=== PATIENT | female | born 1980 | race Caucasian/White ===

== ENCOUNTER 2024-07-17 06:30 | Emergency (ER) | payer BC, SELFPAY ==
[2024-07-17] VITALS (9 sets, daily range): BP systolic 144–188; BP diastolic 93–109; BMI 25.5
--- NOTE | 2024-07-17 06:46 | ED.GENMED ---
History of Present Illness
General
Chief Complaint: Musculo-Skeletal Complaint
Time Seen by Provider: 07/17/24 06:37
History of Present Illness
History of Present Illness:
44-year-old female presents to the emergency department for evaluation of bilateral lower neck discomfort, she states it began mildly in the morning yesterday but at approximately 8pm last night and became quite severe and she felt as though she was
unable to move. Denies any associated fever, chills, sweats, dysphagia, voice changes, chest pain, or shortness of breath. She took ibuprofen last night without relief. Called 911 due to severe pain this morning and was given 50 mcg of fentanyl
with rapid improvement in symptoms. She was also concerned that during the severe bout of pain this morning both of her arms felt numb and painful. She denies any current extremity symptoms at this time. No recent head or neck trauma.
Past History
Past History
ED Past Medical History: IDDM
ED Past Surgical History: None
Social History
Tobacco: Non-smoker
Alcohol: Occasional
Drug: None
Personal:
Living: with family
Employment: Not employed
Review of Systems
Review of Systems
Allergies reviewed?: Yes
All Other Systems: ROS reviewed and negative except as documented in HPI and ROS
Phy Exam
Physical Exam
Physical Exam:
GEN: Well appearing, NAD, WDWN
HEENT: Oral mucosa moist, no scleral icterus
Cardiac: Regular rate and rhythm, no murmurs
Lung: No respiratory distress, no tachypnea, lungs clear to auscultation bilateral
MSK: No gross deformity or injuries. No midline cervical spine tenderness, normal cervical spine range of motion in all blanco with no provocation of pain. Normal upper extremity range of motion with 5 out of 5 strength in all blanco
Skin: Good color, no pallor or jaundice, no rashes
Neuro: AO x3, moves all extremities freely
Psych: Calm, cooperative
Course
Orders/Labs/Results
Orders:
Orders
07/17/24 06:43
Electrocardiogram (*1) Urgent
Reason for Study: Chest Pain
Other Reason for Exam: upper back pain
07/17/24 06:44
EKG- Treatment ONCE
Test Result ONCE
07/17/24 06:45
CR Chest - 2 Views Urgent
Comment:
Reason For Exam: upper back pain
07/17/24 06:52
CMP [Comprehensive Metabolic Panel] Urgent
Complete Blood Count/With Diff Urgent
HCG, Serum Qualitative Screen Urgent
Troponin I Urgent
07/17/24 07:32
Ketorolac [Toradol] 15 mg IV NOW STA
07/17/24 07:43
HYDROmorphone [Dilaudid] 0.5 mg IV NOW STA
07/17/24 09:17
CT Cervical Spine W/o Iv Contr Urgent
Comment:
Reason For Exam: severe neck pain/BUE radiculopathy
07/17/24 10:16
Dexamethasone Sod Phosphate [Decadron] 10 mg IV NOW STA
07/17/24 10:39
Oxycodone [Roxicodone] 5 mg PO NOW STA
Abnormal Lab Results
07/17/24
06:52
RBC 3.94 L 10^6/uL
(4.20-5.40)
Hgb 11.8 L g/dL
(12.0-16.0)
Hct 35.7 L %
(37.0-47.0)
MPV 10.7 H fL
(7.4-10.4)
Chloride 108 H mmol/L
(98-107)
Glucose 168 H mg/dl
(70-99)
07/17/24 06:52
07/17/24 06:52
Vital Signs
Initial and Last Documented VS:
Initial Vital Signs
Temp Pulse Resp BP Pulse Ox
98.3 F 65 16 153/101 100
07/17/24 06:35 07/17/24 06:35 07/17/24 06:35 07/17/24 06:35 07/17/24 06:35
Last Documented Vital Signs
Temp Pulse Resp BP Pulse Ox
98.3 F 65 16 144/93 99
07/17/24 06:35 07/17/24 06:35 07/17/24 06:35 07/17/24 10:00 07/17/24 10:30
MDM/Problems Addressed
MDM/Problems Addressed:
Patient had an episode of severe unrelenting pain that required IV opioids. During this time she was writhing in discomfort and complaining of bilateral arm pain. Ultimately her workup reveals significant degenerative disease in the cervical spine
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 I have a low clinical suspicion for aortic pathology given that she is a non-smoker and relatively young with no
anterior chest pain as well as symmetric blood pressures. Her pain remained well-controlled after IV opioids in the ED. Will prescribe a course of corticosteroids due to the severe foraminal stenosis, she is advised to monitor her glucoses very
closely and adjust insulin accordingly while on steroids
*Critical Care Note
Total Time (30-74mins, 75-104mins- exclusive of procedures): Not Applicable
ED Attending Note
-
Portions of this chart may have been created with voice recognition software.� Occasional wrong word or��sound alike� substitutions may have occurred due to the inherent limitations of voice recognition software.
Discharge Plan
Departure
Patient Disposition: Home (Routine Discharge)
Date of Disposition: 07/17/24
Time of Disposition: 10:43
Patient with high blood pressure during this ER visit?: No
Discharge Problem:
Cervical radiculopathy
Instructions: Herniated Disc (DC)
Prescriptions:
New
methylprednisolone [Medrol (Aris)] 4 mg tablets,dose pack
See Rx Instructions .ROUTE .COMPLEX Qty: 21 0RF
Rx Instructions:
orally per package directions
oxycodone 5 mg tablet
5 mg PO Q8H PRN (Reason: Pain) Qty: 10 0RF
No Action
levothyroxine [Synthroid] 137 mcg Tablet
137 mcg PO DAILY@07
rosuvastatin [Crestor] 5 mg Tablet
5 mg PO HS
insulin aspart U-100 [Novolog U-100 Insulin aspart] 100 unit/mL Solution
Rx Instructions:
insulin pump
Referrals:
Merrill Gibson DO [Family Provider] -
Interventions
Interventions:
*Risk Screen - Suicide Last Done: 07/17/24 06:35
*General Assessment Last Done: 07/17/24 06:35
*Neglect/Abuse Screening Last Done: 07/17/24 06:35
*ED- Fall Risk Assessment Last Done: 07/17/24 06:35
*ED COVID-19 Vaccine History Last Done: 07/17/24 06:35
*Nursing Disposition Last Done: 07/17/24 11:54
ED-Musculoskeletal Assessment Last Done: 07/17/24 06:41
Discharge Date and Time
Discharge Date/Time: 07/17/24 11:57
Print Language: WELSH
[2024-07-17 07:07] LABS: % Basophils 0.7 % (0-2); % Eosinophils 3.1 % (0-6); % Immature Granulocytes 0.1 % (0-0.5); % Lymphocytes 43.5 % (20.5-51.1); % Monocytes 5.5 % (1.7-9.3); % Neutrophils 47.1 % (42.2-75.2); Absolute Basophils 0.1 10^3/uL (0-0.2); Absolute Eosinophils 0.2 10^3/uL (0-0.7); Absolute Lymphocytes 3.1 10^3/uL (1.2-3.4); Absolute Monocytes 0.4 10^3/uL (0.1-0.6); Absolute Neutrophils 3.3 10^3/uL (1.4-6.5); Hematocrit 35.7 % (37.0-47.0); Hemoglobin 11.8 g/dL (12.0-16.0); Mean Corp Hgb Conc. 33.1 g/dL (33.0-37.0); Mean Corpuscular Hgb 29.9 pg (27.0-31.0); Mean Corpuscular Volume 90.6 fL (81.0-99.0); Mean Platelet Volume 10.7 fL (7.4-10.4); Nucleated Red Blood Cells % 0 %; Platelet Count 261 10^3/uL (130-400); Red Blood Cell Count 3.94 10^6/uL (4.20-5.40); Red Cell Dist. Width 13.1 % (11.5-14.5); White Blood Cell Count 7.1 10^3/uL (4.8-10.8)
[2024-07-17 07:15] LABS: HCG, Serum Qualitative Screen Negative
[2024-07-17 07:20] LABS: ALT (SGPT) 12 U/L (0-35); AST (SGOT) 17 U/L (14-36); Albumin 4.2 g/dl (3.5-5.0); Alkaline Phosphatase 47 U/L (38-126); Blood Urea Nitrogen 15 mg/dl (7-17); Calcium 9.1 mg/dl (8.4-10.2); Carbon Dioxide 29 mmol/L (22-30); Chloride 108 mmol/L (98-107); Estimated Creatinine Clearance 75 ml/min; Glucose 168 mg/dl (70-99); Potassium 4.4 mmol/L (3.5-5.1); Sodium 142 mmol/L (135-145); Total Bilirubin 0.5 mg/dl (0.2-1.3); Total Protein 6.8 g/dl (6.3-8.2); eGFR > 60.00
[2024-07-17 07:27] LABS: Troponin I < 0.012 ng/ml
[2024-07-17] MEDS: TORADOL 15 MG IV (07:35)
[2024-07-17] MEDS: DILAUDID 0.5 MG IV (07:46)
[2024-07-17] MEDS: DECADRON 10 MG IV (11:02)
[2024-07-17] MEDS: ROXICODONE 5 MG PO (11:02)
== END 2024-07-17 11:57 | disposition home or self-care (01) ==
LOC: EMR 06:30
PROVIDERS: Physician Assistant; EMERGENCY PHYSICIAN Emergency Medicine; FAMILY PHYSICIAN Family Medicine
DX: M54.12 Radiculopathy, cervical region (principal)
CPT/HCPCS: 99285; 96374; 96375 ×2; 71046; 72125; 80053; 84484; 84703; 85025; 93005